=== PATIENT | female | born 1960 | race Caucasian/White ===

== ENCOUNTER → 2021-08-03 12:23 | Outpatient (BNVA) | payer OTHER, SELFPAY | PROVIDERS: PCP Internal Medicine; Visit Provider Physician Assistant ==

== ENCOUNTER → 2021-08-04 08:02 | Outpatient (BNVA) | payer OTHER, SELFPAY | PROVIDERS: PCP Internal Medicine; Visit Provider Surgery ==

== ENCOUNTER 2021-08-14 12:30 | Outpatient (REF) | payer OTHER, SELFPAY ==
--- NOTE | ~2021-08-14 | XR_ITS ---
EXAMINATION: XR CHEST CLINICAL INFORMATION: Obesity, unspecified. COMPARISON: None TECHNIQUE: 2 views of the chest were obtained. FINDINGS: No significant abnormality is noted involving the heart, lungs, mediastinum, bony thorax or soft tissues. XR/XR chest 2V IMPRESSION: No acute cardiopulmonary process.
--- NOTE | 2021-08-14 12:45 | ECG_ITS ---
Test Reason : obesity Blood Pressure : / mmHG Vent. Rate : 088 BPM Atrial Rate : 088 BPM P-R Int : 128 ms QRS Dur : 072 ms QT Int : 394 ms P-R-T Axes : 070 033 033 degrees QTc Int : 476 ms Normal sinus rhythm Normal ECG No previous ECGs available Referred By: Robin Gupta Electronically Signed By:DANITZA HELM MD
[2021-08-14 13:04] LABS: MANUAL DIFF FLAG NO
[2021-08-14 13:30] LABS: Basophils Percent Auto 0.5 % (0-2); Eosinophils Absolute Auto 0.3 X10*3/uL (0.0-0.4); Eosinophils Percent Auto 4.6 % (0-4); Hematocrit 42.9 % (37-47); Hemoglobin 14.2 g/dl (12.0-16.0); Imm Gran Abs Auto 0.01 X10*3/uL (0.00-0.03); Imm Gran Pct Auto 0.2 % (0.0-0.4); Lymphocytes Absolute Auto 2.1 X10*3/uL (1.2-4.9); Lymphocytes Percent Auto 33.1 % (20-40); Mean Corpuscular HGB Conc 33.1 g/dl (31.0-35.0); Mean Corpuscular Hemoglobin 30.3 pg (27.0-33.0); Mean Corpuscular Volume 91.5 fL (80-98); Mean Platelet Volume 11.4 fL (9.4-12.3); Monocytes Absolute Auto 0.5 X10*3/uL (0.1-1.2); Monocytes Percent Auto 7.3 % (2-11); Neutrophils Absolute Auto 3.4 X10*3/uL (2.0-8.3); Neutrophils Percent Auto 54.3 % (45-73); Platelet Count 191 X10*3/uL (160-400); Red Blood Count 4.69 X10*6/uL (4.20-5.50); Red Cell Distribution Width 13.1 % (11.0-16.0); White Blood Count 6.3 X10*3/uL (4.8-10.8)
[2021-08-14 13:51] LABS: Alanine Aminotransferase 22 U/L (0-31); Albumin Level 4.1 g/dL (3.5-5.0); Alkaline Phosphatase 129 U/L (39-117); Anion Gap 12 (12-20); Aspartate Amino Transferase 23 U/L (5-31); Bilirubin Total 0.6 mg/dL (0.0-1.0); Blood Urea Nitrogen 10 mg/dL (9-16); C Reactive Protein 1.21 mg/dL (< or = 0.50); Calcium 9.3 mg/dL (8.4-10.2); Carbon Dioxide 24 mmol/L (22-29); Chloride 109 mmol/L (96-108); Cholesterol 202 mg/dL; Estimated Glomerular Filt Rate > 60; Glucose Random 120 mg/dL (60-115); HDL Cholesterol 38 mg/dL; Iron 98 mcg/dL (30-160); LDL Cholesterol Calculated 155 mg/dl; Percent Iron Saturation 34 % (15-50); Potassium 4.2 mmol/L (3.3-5.1); Sodium 141 mmol/L (135-145); Total Iron Binding Capacity 291 mcg/dL (228-428); Total Protein 7.2 g/dL (6.5-8.0); Triglycerides 47 mg/dL; Unsaturated Iron Binding 193 ug/dL
[2021-08-14 14:02] LABS: Estimated Average Glucose 120 mg/dL; Hemoglobin A1c % 5.8 %
[2021-08-14 14:16] LABS: Insulin 18 uU/mL (2-29)
[2021-08-14 14:19] LABS: Ferritin 421 ng/mL (10-250); TSH reflex Free T4 1.96 uIU/mL (0.32-4.0); Vitamin D 25-OH Total 32.3 ng/mL (>30)
[2021-08-14 14:27] LABS: Folate 17.3 ng/mL (> or = 4.0); Vitamin B12 672 pg/mL (200-900)
[2021-08-15 16:05] LABS: Calcium (PTHI) 9.5 mg/dL (8.6-10.4); PTHI 84 pg/mL (14-64)
[2021-08-17 17:27] LABS: Zinc 72 mcg/dL (60-130)
[2021-08-18 21:17] LABS: Vitamin A 30 mcg/dL (38-98)
[2021-08-19 11:02] LABS: Vitamin B1 12 nmol/L (8-30)
== END 2021-08-14 12:31 | disposition home or self-care (01) ==
LOC: HO.LAB 12:30
PROVIDERS: PCP Internal Medicine; Visit Provider Surgery
DX: E66.9 Obesity, unspecified (principal); Z68.36 Body mass index [BMI] 36.0-36.9, adult; I10 Essential (primary) hypertension; J45.909 Unspecified asthma, uncomplicated
CPT/HCPCS: 36415; 71046; 80053; 80061; 82306; 82607; 82728; 82746; 83036; 83525; 83540; 83970; 84425; 84443; 84590; 84630; 85025; 86140; 93005

== ENCOUNTER → 2021-09-01 08:08 | Outpatient (BNVA) | payer OTHER, SELFPAY | PROVIDERS: PCP Internal Medicine; Visit Provider Surgery ==

== ENCOUNTER → 2021-09-08 08:06 | Outpatient (BNVA) | payer OTHER, SELFPAY | PROVIDERS: PCP Internal Medicine; Visit Provider Dietitian, Registered ==

== ENCOUNTER → 2021-09-29 08:15 | Outpatient (BNVA) | payer MEDICARE, MEDICAID, SELFPAY | PROVIDERS: PCP Internal Medicine; Visit Provider Dietitian, Registered | DX: E66.9 Obesity, unspecified (principal) | CPT/HCPCS: 97802 ==

== ENCOUNTER → 2021-10-18 08:12 | Outpatient (BNVA) | payer MEDICARE, MEDICAID, SELFPAY | PROVIDERS: PCP Internal Medicine; Referring Provider Surgery; Visit Provider Dietitian, Registered | DX: E66.9 Obesity, unspecified (principal); Z68.38 Body mass index [BMI] 38.0-38.9, adult | CPT/HCPCS: 97803 ==

== ENCOUNTER 2021-11-20 09:52 | Outpatient (REF) | payer MEDICARE, MEDICAID, SELFPAY ==
--- NOTE | ~2021-11-20 | FL_ITS ---
EXAMINATION: XR FLUOROSCOPY UPPER GI WITH AIR CLINICAL INFORMATION: Obesity. COMPARISON: None. TECHNIQUE: Routine upper GI air-contrast study was performed in upright and lying position. FINDINGS: Following oral administration of thick barium and effervescent granules, there is normal propagation of bolus from the oral cavity through the pharynx and esophagus and into the stomach. On placing patient supine and prone lying, the course, caliber and peristalsis of the stomach are normal. There is mild increased loculation along the body of the stomach, suspicious for increased acidity. The mucosal pattern of the stomach, duodenal bulb and the sweep is normal. No gastroesophageal reflux or hiatal hernia seen. FLUOROSCOPY TIME: 2.6 minutes DOSE AREA PRODUCT: 27.966 uGy-m2 (microgray-meter squared) FL/FL upper GI w air IMPRESSION: Increased flocculation of barium in the body of the stomach, suspicious for hyperacidity. The rest of the upper GI exam is unremarkable.
--- NOTE | ~2021-11-20 | US_ITS ---
EXAMINATION: US COMPLETE ABDOMEN WITH LIVER ELASTOGRAPHY CLINICAL INFORMATION: Obesity COMPARISON: None. TECHNIQUE: Real-time imaging of the abdominal viscera. Noninvasive ultrasound liver fibrosis assessment is performed using Aliya ElastPQ point quantification shear wave elastography (2D-SWE) with a C5-2 MHz transducer. Multiple elastography samples are obtained. FINDINGS: PANCREAS: Normal. ABDOMINAL AORTA: The proximal, middle, and distal aortic segments are normal in caliber. INFERIOR VENA CAVA: Visualized portions are normal. LIVER: Liver echotexture is increased. The liver is enlarged. The liver is normal in contour. No focal lesion or intrahepatic biliary duct dilatation. The right lobe measures 21 cm in length. The left lobe measures 18 cm in length. Portal flow is not assessed. Shear wave liver elastography median stiffness is 1.6 m/s (reference: normal median stiffness is 1.3 m/s or less). IQR/median stiffness to assess sampling precision is 0.2 (reference: good quality data set is IQR/median stiffness of 0.15 or less). GALLBLADDER: Normal. The gallbladder is physiologically distended without evidence of stones, sludge, polyps, wall thickening or pericholecystic fluid. COMMON BILE DUCT: Normal in caliber measuring 0.4 cm in diameter. RIGHT KIDNEY: There are 2 stones measuring 8 x 4 x 7 mm and 9 mm in the midpole. No hydronephrosis. No focal parenchymal lesions. The kidney measures 10 cm in maximum dimension. LEFT KIDNEY: There are 3 stones measuring 6 x 4 x 4 mm, 5 x 4 x 7 mm and 2 x 4 mm in the midpole. There is a 1 cm cyst in the midpole. No hydronephrosis. No renal mass. The kidney measures 11 cm in maximum dimension. SPLEEN: Normal. The spleen measures 10.3 cm in maximum dimension. FREE FLUID: None. US/US abdomen comp w elastography IMPRESSION: 1. Impression: Enlarged echogenic liver probably representing fatty infiltration. Bilateral renal stones. Small left renal cyst. 2. Liver elastography: Slightly limited due to sampling error. In the absence of other known clinical signs, rules out compensated advanced chronic liver disease. REFERENCE: Society of Radiologists in Ultrasound Liver Stiffness Thresholds (2020): LIVER STIFFNESS THRESHOLDS: *Liver Stiffness equal or less than 1.3 m/s: High probability of being normal. *Liver Stiffness less than 1.7 m/s: In the absence of other known clinical signs, rules out compensated advanced chronic liver disease. *Liver Stiffness 1.7-2.1 m/s: Suggestive of compensated advanced chronic liver disease but need further test for confirmation. *Liver Stiffness over 2.1 m/s: Rules in compensated advanced chronic liver disease. *Liver Stiffness over 2.4 m/s: Suggestive of clinically significant portal hypertension. QUALITY OF DATA SET: *IQR/Median value equal or less than 0.15 implies a quality data set. *IQR/Median value over 0.15 implies a poor quality data set. SIGNIFICANT CHANGE FROM PRIOR EXAM: Significant change if liver stiffness measurement is 10% or greater from prior exam. OTHER CONSIDERATIONS: The stage of liver fibrosis may be overestimated in the setting of acute hepatitis, liver inflammation, elevated liver function tests, hepatic vascular congestion, obstructive cholestasis, non-fasting state, and infiltrative diseases such as amyloidosis and lymphoma. In some patients with NAFLD, the liver stiffness thresholds for compensated advanced chronic liver disease may be lower. In causes other than viral hepatitis and NAFLD, liver stiffness thresholds are not well established.
--- NOTE | 2021-11-20 17:01 | PFT_ITS ---
Forced vital capacity 61. FEV1 55%. FEF 25-75 is 34%. MVV 52%. These findings are consistent with moderate degree of obstructive airway disorder. Post bronchodilator therapy, there is small, but significant improvement in FEV1, [id number]. Total lung capacity 89%. Residual volume 114%. Diffusion capacity 79%, normal. CONCLUSION: Moderate degree of obstructive airway disorder with positive response to bronchodilator therapy. These findings are consistent with bronchial asthma. Clinical correlation is recommended. MD SHIRLEY Pantoja/MODL / [id number]
== END 2021-11-20 09:53 | disposition home or self-care (01) ==
LOC: HO.RESP 09:52
PROVIDERS: Visit Provider Surgery
DX: J45.909 Unspecified asthma, uncomplicated (principal); I10 Essential (primary) hypertension; E66.9 Obesity, unspecified; Z68.36 Body mass index [BMI] 36.0-36.9, adult
CPT/HCPCS: 74246; 76705; 76981; 94060; 94727; 94729

== ENCOUNTER → 2021-12-08 08:18 | Outpatient (BNVA) | payer MEDICARE, MEDICAID, SELFPAY | PROVIDERS: PCP Internal Medicine; Referring Provider Surgery; Visit Provider Dietitian, Registered | DX: Z13.89 Encounter for screening for other disorder (principal) ==

== ENCOUNTER → 2021-12-26 11:52 | Outpatient (BNVA) | payer MEDICARE, MEDICAID, SELFPAY | PROVIDERS: PCP Nurse Practitioner Pediatrics; Visit Provider Urology | DX: N20.0 Calculus of kidney (principal) | CPT/HCPCS: Q3014 ==

== ENCOUNTER → 2021-12-28 11:36 | Outpatient (BNVA) | payer MEDICARE, MEDICAID, SELFPAY | PROVIDERS: PCP Nurse Practitioner Pediatrics; Referring Provider Physician Assistant; Visit Provider Dietitian, Registered | DX: E66.9 Obesity, unspecified (principal); Z68.36 Body mass index [BMI] 36.0-36.9, adult | CPT/HCPCS: 97803 ==

== ENCOUNTER → 2022-01-12 08:19 | Outpatient (BNVA) | payer MEDICARE, MEDICAID, SELFPAY | PROVIDERS: PCP Nurse Practitioner Pediatrics; Referring Provider Surgery; Visit Provider Dietitian, Registered | DX: Z13.89 Encounter for screening for other disorder (principal) ==

== ENCOUNTER 2022-01-31 06:13 | Day surgery (SDC) | payer MEDICARE, MEDICAID, SELFPAY ==
--- NOTE | 2022-01-30 11:49 | HO.ANESPROP2 ---
Documented by User: Rajani García NP 01/30/22 11:50 HPI - Anesthesia Eval Consult details Narrative: 61yo F for Left ESWL PMFSH Active Problems Active Problems: All Active Problems (Updated 08/21/21 @ 20:30 by Robin Gupta MD) Vitamin A deficiency (Acute) Moderate episode of recurrent major depressive disorder (Acute) Binge eating disorder (Acute) Fibromyalgia (Acute) DJD (degenerative joint disease) (Acute) Asthma (Acute) Nephrolithiasis (Acute) Depression (Acute) Hypertension (Acute) GERD (gastroesophageal reflux disease) (Acute) BMI 36.0-36.9,adult (Acute) Obesity (Acute) Past Medical History Medical History Asthma Depression DJD (degenerative joint disease) Fibromyalgia GERD (gastroesophageal reflux disease) Hypertension Nephrolithiasis Obesity Family History Family History Mother Osteoporosis Father Dementia Parkinsons Sister Migraines Brother No problems noted. Brother No problems noted. Son No problems noted. Son No problems noted. Son No problems noted. Surgical History Surgical History History of kidney surgery Hx of section Hx of colonoscopy Hx of dilation and curettage Social History Social History Alcohol intake: current Alcohol intake frequency: holidays/special occasions only Patient Tobacco Use Status: Former Tobacco user Meds Allergies Allergy/AdvReac Type Severity Reaction Status Date / Time naproxen [From NAPROSYN] Allergy Unknown STOMACH Verified 01/25/22 15:14 UPSET Seasonal Allergies Allergy Watery Eye Verified 01/31/22 08:33 Home Medications Medication Instructions Recorded Confirmed Last Taken Type amitriptyline 75 mg tablet 75 mg PO BEDTIME 08/04/21 01/25/22 Unknown History clonazepam 1 mg tablet 1 mg PO BID PRN 08/04/21 01/25/22 Unknown History escitalopram oxalate 20 mg tablet 20 mg PO QAM 08/04/21 01/25/22 Unknown History fluticasone propionate 230 2 puff INHALATION BID 08/04/21 01/25/22 Unknown History mcg-salmeterol 21 mcg/actuation HFA inhaler (Advair HFA) fluticasone propionate 50 1 spray INTRANASAL BID 08/04/21 01/25/22 Unknown History mcg/actuation nasal spray,suspension hydrochlorothiazide 12.5 mg tablet 12.5 mg PO DAILY 08/04/21 01/25/22 Unknown History hydroxyzine HCl 25 mg tablet 25 mg PO TID PRN 08/04/21 01/25/22 Unknown History inhalational spacing device #1 ea 08/04/21 08/04/21 [facility] loratadine 10 mg tablet 10 mg PO DAILY 08/04/21 01/25/22 Unknown History montelukast 10 mg tablet 10 mg PO DAILY 08/04/21 01/25/22 Unknown History estradiol VAGINAL 12/26/21 Unknown History meloxicam 15 mg tablet mg PO 12/26/21 Unknown History Exam Exam Date and Time: January 30, 2022 1149 Pertinent Lab Results Pertinent Lab Results: Laboratory Tests 08/14/21 08/14/21 13:00 13:00 WBC 6.3 Hgb 14.2 Hct 42.9 Plt Count 191 Sodium 141 Potassium 4.2 Chloride 109 H Carbon Dioxide 24 BUN 10 Creatinine 0.83 Narrative Narrative: EKG 07/2021 Vent. Rate : 088 BPM ? ? Atrial Rate : 088 BPM ?? P-R Int : 128 ms? QRS Dur : 072 ms ? ? QT Int : 394 ms ? ? ? P-R-T Axes : 070 033 033 degrees ?? QTc Int : 476 ms ? Normal sinus rhythm Normal ECG No previous ECGs available Assessment and Plan Assessment Anesthesia Assessment: Chart Reviewed Documented by User: Jm Calderon MD 01/31/22 15:04 PMFSH Past Medical History Medical History Asthma Depression DJD (degenerative joint disease) Fibromyalgia GERD (gastroesophageal reflux disease) Hypertension Nephrolithiasis Obesity Family History Family History Mother Osteoporosis Father Dementia Parkinsons Sister Migraines Brother No problems noted. Brother No problems noted. Son No problems noted. Son No problems noted. Son No problems noted. Family history of problems with anesthesia: No Surgical History Surgical History History of kidney surgery Hx of section Hx of colonoscopy Hx of dilation and curettage History of Problems with Anesthesia: No Social History Social History Alcohol intake: current Alcohol intake frequency: holidays/special occasions only Patient Tobacco Use Status: Former Tobacco user Meds Allergies Allergy/AdvReac Type Severity Reaction Status Date / Time naproxen [From NAPROSYN] Allergy Unknown STOMACH Verified 01/25/22 15:14 UPSET Seasonal Allergies Allergy Watery Eye Verified 01/31/22 08:33 Home Medications Medication Instructions Recorded Confirmed Last Taken Type amitriptyline 75 mg tablet 75 mg PO BEDTIME 08/04/21 01/25/22 Unknown History clonazepam 1 mg tablet 1 mg PO BID PRN 08/04/21 01/25/22 Unknown History escitalopram oxalate 20 mg tablet 20 mg PO QAM 08/04/21 01/25/22 Unknown History fluticasone propionate 230 2 puff INHALATION BID 08/04/21 01/25/22 Unknown History mcg-salmeterol 21 mcg/actuation HFA inhaler (Advair HFA) fluticasone propionate 50 1 spray INTRANASAL BID 08/04/21 01/25/22 Unknown History mcg/actuation nasal spray,suspension hydrochlorothiazide 12.5 mg tablet 12.5 mg PO DAILY 08/04/21 01/25/22 Unknown History hydroxyzine HCl 25 mg tablet 25 mg PO TID PRN 08/04/21 01/25/22 Unknown History inhalational spacing device #1 ea 08/04/21 08/04/21 Unknown History ([facility]) loratadine 10 mg tablet 10 mg PO DAILY 08/04/21 01/25/22 Unknown History montelukast 10 mg tablet 10 mg PO DAILY 08/04/21 01/25/22 Unknown History estradiol VAGINAL 12/26/21 Unknown History meloxicam 15 mg tablet mg PO 12/26/21 Unknown History Exam Airway Mallampati Class: III TM Dist: >3cm Neck ROM: Full Loose/Missing/Broken Teeth: Yes Heart: rrr Lungs: b/l breath sounds Assessment and Plan Assessment Anesthesia Assessment: Anesthesia Plan Discussed Final Anesthetic Review Family History of Problems with Anesthesia: No History of Problems with Anesthesia: No NPO: Yes ASA Class: II Final Preanesthetic Review: Meds/Allgs Chart Reviewed, Consent Obtained/Reviewed and Anes Risks/Benef Reviewed Patient Risk: Intermediate Procedure Risk: Intermediate Anesthetic Plan Anesthetic Plan: GA Disposition: Standard PACU
[2022-01-31] VITALS (7 sets, daily range): BP systolic 116–149; BP diastolic 76–93; PULSE 77–89; RESP 16–18; TEMP 36.1–36.6; O2SAT 94–99; BMI 37.8
--- NOTE | ~2022-01-31 | XR_ITS ---
EXAMINATION: XR ABDOMEN KUB CLINICAL INDICATION: Nephrolithiasis COMPARISON: None TECHNIQUE: AP view of the abdomen. FINDINGS: No calcifications projecting over the kidneys are seen. There are bilateral pelvic calcifications probably representing calcified phleboliths. Bowel gas pattern and bony structures are unremarkable. XR/XR KUB IMPRESSION: No renal stone seen by KUB.
[2022-01-31] MEDS: Acetaminophen 325 MG TABLET 650 MG PO (06:47)
[2022-01-31] MEDS: Lactated Ringers 1,000 ML 100 ML IVCONT (06:47)
--- NOTE | 2022-01-31 08:00 | MHC.SHP ---
Pre-Procedural Eval Section A Date of Service: 01/31/22 The patient is an INPATIENT: No Changes since office visit: No Cold of Flu in the past 2 weeks, No New Medical Problems, No Changes in Medication and No Patient answered all questions The History & Physical has been completed within 30 days and I have reviewed it.: No Section B Chief Complaint: calculus of kidney Details of Present Illness: bilateral stones - treatment Left ESWL Relevant Family History (Specify if Yes): No Relevant Social History: None Present Medications: see Short Stay Collaborative assessment Medical History: Significant History History of Previous Operations: Relevant previous surgery/procedure and date(s) Allergies: Allergies Allergy/AdvReac Type Severity Reaction Status Date / Time naproxen [From NAPROSYN] Allergy Unknown STOMACH Verified 01/25/22 15:14 UPSET Seasonale Allergy Unknown Anaphylaxis Uncoded 01/25/22 15:14 Review of Systems Sugical H&P ROS: Negative: Constitution, Cardiovascular, Respiratory, Neurological, Psychiatric, Hem-Onc, Allergic/Immunologic, Gastrointestinal, Genitourinary, Musculoskeletal, Integumentary, Endocrine and Eyes/Ears/Nose/Throat Exam Surgical H&P Exam: Normal: HEENT, Normal: Heart, Normal: Lungs, Normal: Extremities, Normal: Abdomen, Normal: Skin and Normal: Neurological Plan Diagnosis/Plan: Unchanged (left ESWL) I have reviewed the history and physical and performed a pertinent physical examination on my patient. No changes have occurred unless specified.
--- NOTE | 2022-01-31 08:46 | W.PM.OPN ---
Operative Note Operative Note Date of Service: 01/31/22 Narrative: PreOperative Diagnosis: Left Renal stones Post Operative Diagnosis: Left Renal stones Procedure: Left ESWL Surgeon: Dr Maco Ponce Anesthesia: mac/sedation Indications for procedure: The patient understands ESWL may be a staged procedure and subsequent intervention may be required based on imaging after ESWL. They also understand there is a risk of bleeding to the kidney, infection, damage to adjacent organs, and stone migration following the procedure. - Imaging x-ray with 6 mm left mid pole stone Procedure: After informed consent was verified the patient was brought to the operating room and placed in a supine position. Anesthesia was performed per protocol. Safety pause time-out was performed. Imaging was displayed in the room and laterality confirmed. ESWL was performed. The 1st 500 shocks were performed at 60 hertz. These were performed with increasing power. Once maximum power was reached the rate was increased to 180 hertz. A total of 2500 shocks were given. Targetted imaging with ultrasound/fluoroscopy showed stone smudging suggestive of disintegration. The patient tolerated the procedure well and was transferred to the recovery area upon completion. Post procedure imaging will be organized. There was no evidence for flank discoloration.
[2022-01-31] MEDS: Phenazopyridine HCL 100 MG TABLET PO (09:26)
== END 2022-01-31 10:20 | disposition home or self-care (01) ==
PROVIDERS: PCP Internal Medicine; Visit Provider Urology
PROC: (CPT 50590; principal; 2022-01-31 08:10)
DX: N20.0 Calculus of kidney (principal); Z87.442 Personal history of urinary calculi; I10 Essential (primary) hypertension; M79.7 Fibromyalgia; J45.909 Unspecified asthma, uncomplicated; Z79.51 Long term (current) use of inhaled steroids; Z79.899 Other long term (current) drug therapy; Z88.8 Allergy status to other drugs, medicaments and biological substances; Z87.891 Personal history of nicotine dependence; N13.2 Hydronephrosis with renal and ureteral calculous obstruction
CPT/HCPCS: 50590; 74018; J1100; J2250; J2405; J3010

== ENCOUNTER 2022-02-22 14:16 | Outpatient (REF) | payer MEDICARE, MEDICAID, SELFPAY ==
--- NOTE | ~2022-02-22 | US_ITS ---
EXAMINATION: US RETROPERITONEAL LIMITED (RENAL ONLY) CLINICAL INFORMATION: Calculus of kidney. COMPARISON: XR abdomen KUB 01/31/2022. US abdomen complete with liver elastography 11/20/2021. TECHNIQUE: Real-time imaging of the kidneys. FINDINGS: RIGHT KIDNEY: 11.0 x 5.2 x 6.2 cm (SAG x AP x TRV). The kidney is normal in size, contour, and echogenicity. Renal cortical thickness is normal. No hydronephrosis. Simple cyst at the midpole measures 1.4 cm. No follow-up imaging recommended. There are multiple calculi present with the largest at the mid to lower pole measuring 0.7 cm. This is similar to prior. LEFT KIDNEY: 12.0 x 5.3 x 5.3 cm (SAG x AP x TRV). The kidney is normal in size, contour, and echogenicity. Renal cortical thickness is normal. No hydronephrosis. There is a lower pole 1.5 cm simple cyst. No follow-up imaging recommended. There are at least 3 midpole calculi. The largest measures 1 cm. The others measure 0.6 cm. Likely no significant change from prior. US/US renal BI IMPRESSION: Numerous nonobstructing bilateral renal calculi..
== END 2022-02-22 14:17 | disposition home or self-care (01) ==
LOC: HO.US 14:16
PROVIDERS: PCP Internal Medicine; Visit Provider Urology
DX: N20.0 Calculus of kidney (principal)
CPT/HCPCS: 76775

== ENCOUNTER → 2022-02-23 11:36 | Outpatient (BNVA) | payer MEDICARE, MEDICAID, SELFPAY | PROVIDERS: PCP Internal Medicine; Visit Provider Urology | DX: N39.0 Urinary tract infection, site not specified (principal); N20.0 Calculus of kidney | CPT/HCPCS: Q3014 ==

== ENCOUNTER 2022-03-14 08:37 | Day surgery (SDC) | payer MEDICARE, MEDICAID, SELFPAY ==
[2022-03-08 18:25] VITALS: BMI 37.2
--- NOTE | 2022-03-13 11:51 | P.CONAN_ITS ---
Documented by User: Rajani García NP 03/13/22 11:51 HPI - Anesthesia Eval Consult details Narrative: 61yo F for Right ESWL Last ESWL 01/2022 with GA-LMA 4 PMFSH Active Problems Active Problems: All Active Problems (Updated 03/08/22 @ 17:14 by Vinita Trent, RN) BMI 36.0-36.9,adult (Acute) Binge eating disorder (Acute) Moderate episode of recurrent major depressive disorder (Acute) Vitamin A deficiency (Acute) Chronic UTI (urinary tract infection) (Acute) Fibromyalgia (Acute) DJD (degenerative joint disease) (Acute) Asthma (Acute) Nephrolithiasis (Acute) Depression (Acute) Hypertension (Acute) GERD (gastroesophageal reflux disease) (Acute) Obesity (Acute) Past Medical History Medical History (Updated 03/08/22 @ 17:14 by Vinita Trent, GERALDINE) Asthma Back pain Depression DJD (degenerative joint disease) Fatty liver Fibromyalgia GERD (gastroesophageal reflux disease) Hypertension Migraine Nephrolithiasis Obesity Family History Family History Mother Osteoporosis Father Dementia Parkinsons Sister Migraines Brother No problems noted. Brother No problems noted. Son No problems noted. Son No problems noted. Son No problems noted. Family history of problems with anesthesia: No Surgical History Surgical History (Updated 03/09/22 @ 12:45 by Mariama Santamaria RN) History of endometrial ablation History of kidney surgery History of lithotripsy Hx of section Hx of colonoscopy Hx of dilation and curettage History of Problems with Anesthesia: No Social History Social History Alcohol intake: current Alcohol intake frequency: holidays/special occasions only Patient Tobacco Use Status: Former Tobacco user Use of substances other than those prescribed or required for medical reasons: No Are you DNR?: No Advance Directives: No Advance Directives Information Provided: Yes Advance Directives on File: No Recently lost weight without trying: No Nutrition Risks: No Nutritional Risk Patient : No Meds Allergies Allergy/AdvReac Type Severity Reaction Status Date / Time naproxen [From NAPROSYN] Allergy Unknown STOMACH Verified 02/23/22 11:37 UPSET Seasonal Allergies Allergy Watery Eye Verified 02/23/22 11:37 Home Medications Medication Instructions Recorded Confirmed Last Taken Type amitriptyline 75 mg tablet 75 mg PO BEDTIME 08/04/21 03/08/22 Unknown History clonazepam 1 mg tablet 1 mg PO BID PRN 08/04/21 03/08/22 Unknown History escitalopram oxalate 20 mg tablet 20 mg PO QAM 08/04/21 03/08/22 Unknown History fluticasone propionate 230 2 puff INHALATION BID 08/04/21 03/08/22 Unknown History mcg-salmeterol 21 mcg/actuation HFA inhaler (Advair HFA) fluticasone propionate 50 1 spray INTRANASAL BID 08/04/21 03/08/22 Unknown History mcg/actuation nasal spray,suspension hydrochlorothiazide 12.5 mg tablet 12.5 mg PO DAILY 08/04/21 03/08/22 Unknown History hydroxyzine HCl 25 mg tablet 25 mg PO TID PRN 08/04/21 03/08/22 Unknown History inhalational spacing device #1 ea 08/04/21 08/04/21 Unknown History ([facility]) loratadine 10 mg tablet 10 mg PO DAILY 08/04/21 03/08/22 Unknown History montelukast 10 mg tablet 10 mg PO DAILY 08/04/21 03/08/22 Unknown History estradiol 1 appl VAGINAL DAILY 12/26/21 03/08/22 Unknown History meloxicam 15 mg tablet 15 mg PO DAILY 12/26/21 03/08/22 Unknown History Exam Exam Date and Time: March 13, 2022 1151 Height,Weight and Vital Signs: Height 5 ft 1 in Weight 89.358 kg Pertinent Lab Results Pertinent Lab Results: Laboratory Tests ? 08/14/21 08/14/21 ? 13:00 13:00 WBC ?6.3 ? Hgb ?14.2 ? Hct ?42.9 ? Plt Count ?191 ? Sodium ? ?141 Potassium ? ?4.2 Chloride ? ?109 H Carbon Dioxide ? ?24 BUN ? ?10 Creatinine ? ?0.83 Narrative Narrative: EKG 07/2021 Vent. Rate : 088 BPM ? ? Atrial Rate : 088 BPM ?? P-R Int : 128 ms? QRS Dur : 072 ms ? ? QT Int : 394 ms ? ? ? P-R-T Axes : 070 033 033 degrees ?? QTc Int : 476 ms ? Normal sinus rhythm Normal ECG No previous ECGs available Assessment and Plan Assessment Anesthesia Assessment: Chart Reviewed Final Anesthetic Review Family History of Problems with Anesthesia: No History of Problems with Anesthesia: No Documented by User: Byron Gaspar MD 03/14/22 10:51 [facility] Past Medical History Medical History (Updated 03/08/22 @ 17:14 by Vinita Trent, GERALDINE) Asthma Back pain Depression DJD (degenerative joint disease) Fatty liver Fibromyalgia GERD (gastroesophageal reflux disease) Hypertension Migraine Nephrolithiasis Obesity Family History Family History Mother Osteoporosis Father Dementia Parkinsons Sister Migraines Brother No problems noted. Brother No problems noted. Son No problems noted. Son No problems noted. Son No problems noted. Surgical History Surgical History (Updated 03/09/22 @ 12:45 by Mariama Santamaria, GERALDINE) History of endometrial ablation History of kidney surgery History of lithotripsy Hx of section Hx of colonoscopy Hx of dilation and curettage Social History Social History Alcohol intake: current Alcohol intake frequency: holidays/special occasions only Patient Tobacco Use Status: Former Tobacco user Use of substances other than those prescribed or required for medical reasons: No Are you DNR?: No Advance Directives: No Advance Directives Information Provided: Yes Advance Directives on File: No Recently lost weight without trying: No Nutrition Risks: No Nutritional Risk Patient : No Meds Allergies Allergy/AdvReac Type Severity Reaction Status Date / Time naproxen [From NAPROSYN] Allergy Unknown STOMACH Verified 02/23/22 11:37 UPSET Seasonal Allergies Allergy Watery Eye Verified 02/23/22 11:37 Home Medications Medication Instructions Recorded Confirmed Last Taken Type amitriptyline 75 mg tablet 75 mg PO BEDTIME 08/04/21 03/08/22 Unknown History clonazepam 1 mg tablet 1 mg PO BID PRN 08/04/21 03/08/22 Unknown History escitalopram oxalate 20 mg tablet 20 mg PO QAM 08/04/21 03/08/22 Unknown History fluticasone propionate 230 2 puff INHALATION BID 08/04/21 03/08/22 Unknown History mcg-salmeterol 21 mcg/actuation HFA inhaler (Advair HFA) fluticasone propionate 50 1 spray INTRANASAL BID 08/04/21 03/08/22 Unknown History mcg/actuation nasal spray,suspension hydrochlorothiazide 12.5 mg tablet 12.5 mg PO DAILY 08/04/21 03/08/22 Unknown History hydroxyzine HCl 25 mg tablet 25 mg PO TID PRN 08/04/21 03/08/22 Unknown History inhalational spacing device #1 ea 08/04/21 08/04/21 Unknown History ([facility]) loratadine 10 mg tablet 10 mg PO DAILY 08/04/21 03/08/22 Unknown History montelukast 10 mg tablet 10 mg PO DAILY 08/04/21 03/08/22 Unknown History estradiol 1 appl VAGINAL DAILY 12/26/21 03/08/22 Unknown History meloxicam 15 mg tablet 15 mg PO DAILY 12/26/21 03/08/22 Unknown History Exam Airway Mallampati Class: II TM Dist: >3cm Neck ROM: Full Loose/Missing/Broken Teeth: No Heart: [id number] Lungs: cta b/l Assessment and Plan Assessment Anesthesia Assessment: Anesthesia Plan Discussed Final Anesthetic Review NPO: Yes ASA Class: III Final Preanesthetic Review: No Changes in Pt Med Stat, Meds/Allgs Chart Reviewed, Consent Obtained/Reviewed and Anes Risks/Benef Reviewed Patient Risk: Intermediate Procedure Risk: Intermediate Assessment/Block/Sedation in SS: Assess/Block/Sedation-SS Anesthetic Plan Anesthetic Plan: GA, MAC: and Agree w/ Assess. and Plan Disposition: Standard PACU
[2022-03-14] VITALS (9 sets, daily range): BP systolic 134–169; BP diastolic 80–99; PULSE 67–81; RESP 16–20; TEMP 36.2–36.7; O2SAT 95–98
--- NOTE | ~2022-03-14 | XR_ITS ---
EXAMINATION: XR ABDOMEN [facility] CLINICAL INDICATION: Nephrolithiasis. COMPARISON: [facility] 01/31/2022. TECHNIQUE: AP view of the abdomen. FINDINGS: There is scattered stool seen in the colon. There are 2 radiopaque tubular foreign body seen in the right abdomen. No radiopaque calculi. There are phleboliths in left pelvis. Mild degenerative disc changes XR/XR [facility] IMPRESSION: 2 tubular foreign body seen in the right abdomen and the upper pelvis likely secondary to oral ingestion. There are new compared to last exam 01/31/2022. Correlate clinically. No radiopaque renal calculi seen.
[2022-03-14] MEDS: Acetaminophen 325 MG TABLET 650 MG PO (09:42)
[2022-03-14] MEDS: Lactated Ringers 1,000 ML 100 ML IVCONT (09:43)
--- NOTE | 2022-03-14 10:15 | MHC.SHP ---
Pre-Procedural Eval Section A Date of Service: 03/14/22 The patient is an INPATIENT: No Changes since office visit: No Cold of Flu in the past 2 weeks, No New Medical Problems, No Changes in Medication and No Patient answered all questions The History & Physical has been completed within 30 days and I have reviewed it.: Yes Section B Chief Complaint: kidney stone Allergies: Allergies Allergy/AdvReac Type Severity Reaction Status Date / Time naproxen [From NAPROSYN] Allergy Unknown STOMACH Verified 02/23/22 11:37 UPSET Seasonal Allergies Allergy Watery Eye Verified 02/23/22 11:37 Plan Diagnosis/Plan: Unchanged (right renal eswl) I have reviewed the history and physical and performed a pertinent physical examination on my patient. No changes have occurred unless specified.
--- NOTE | 2022-03-14 11:47 | W.PM.OPN ---
Operative Note Operative Note Date of Service: 03/14/22 Narrative: PreOperative Diagnosis: Right Renal stones Post Operative Diagnosis: Right Renal stones Procedure: Right ESWL Surgeon: Dr Maco Ponce Anesthesia: mac/sedation Indications for procedure: The patient understands ESWL may be a staged procedure and subsequent intervention may be required based on imaging after ESWL. They also understand there is a risk of bleeding to the kidney, infection, damage to adjacent organs, and stone migration following the procedure. - Imaging 8 mm right-sided Procedure: After informed consent was verified the patient was brought to the operating room and placed in a supine position. Anesthesia was performed per protocol. Safety pause time-out was performed. Imaging was displayed in the room and laterality confirmed. ESWL was performed. The 1st 500 shocks were performed at 60 hertz. These were performed with increasing power. Once maximum power was reached the rate was increased to 180 hertz. A total of 2500 shocks were given. Targetted imaging with ultrasound/fluoroscopy showed stone smudging suggestive of disintegration. The patient tolerated the procedure well and was transferred to the recovery area upon completion. Post procedure imaging will be organized. There was no evidence for flank discoloration.
--- NOTE | 2022-03-14 12:25 | HO.POSTANES ---
Post Anesthesia Evaluation Post Anesthesia Evaluation Vital Signs: Vital Signs Temp Pulse Resp BP Pulse Ox 03/14/22 12:09 78 18 145/99 H 96 03/14/22 12:04 75 18 135/92 H 95 03/14/22 11:59 97.7 F 78 16 169/90 H 95 03/14/22 09:45 98.1 F 80 16 162/80 H 95 Mental Status: Awake Pain Control: Satisfactory Nausea/Vomiting: None Hydration: Adequate Anesthesia-Related Issues: No Anes. Related Issues
[2022-03-14] MEDS: traMADoL HCL 50 MG TABLET PO (12:48)
[2022-03-14] MEDS: fentaNYL citrate/PF 100 MCG/2 ML VIAL 50 MCG IVPUSH (12:50)
[2022-03-14] MEDS: Phenazopyridine HCL 100 MG TABLET PO (13:28)
== END 2022-03-14 14:39 | disposition home or self-care (01) ==
PROVIDERS: PCP Internal Medicine; Visit Provider Urology
PROC: (CPT 50590; principal; 2022-03-14 10:20)
DX: N20.0 Calculus of kidney (principal); Z87.442 Personal history of urinary calculi; N39.0 Urinary tract infection, site not specified; I10 Essential (primary) hypertension; J45.909 Unspecified asthma, uncomplicated; M79.7 Fibromyalgia; F33.1 Major depressive disorder, recurrent, moderate; K21.9 Gastro-esophageal reflux disease without esophagitis; E66.9 Obesity, unspecified; Z68.36 Body mass index [BMI] 36.0-36.9, adult; Z79.51 Long term (current) use of inhaled steroids; Z79.899 Other long term (current) drug therapy; Z88.8 Allergy status to other drugs, medicaments and biological substances; Z87.891 Personal history of nicotine dependence
CPT/HCPCS: 50590; 74018; J2250; J3010

== ENCOUNTER 2022-04-19 09:46 | Outpatient (REF) | payer MEDICARE, MEDICAID, SELFPAY ==
--- NOTE | ~2022-04-19 | US_ITS ---
EXAMINATION: US RETROPERITONEAL LIMITED (RENAL ONLY) CLINICAL INFORMATION: Calculus of kidney. COMPARISON: [facility] dated 03/14/2022 and 01/31/2022. Bilateral renal ultrasound dated 02/22/2022. TECHNIQUE: Real-time imaging of the kidneys. FINDINGS: RIGHT KIDNEY: 10.7 x 5.1 x 4.2 cm (SAG x AP x TRV). The kidney is normal in size, contour, and echogenicity. Renal cortical thickness is normal. No renal calculi or hydronephrosis. There is anechoic cyst in midpole laterally measuring 1.1 x 0.9 x 1.0 cm. There are no echogenic stones seen. LEFT KIDNEY: 11.9 x 5.4 x 5.3 cm (SAG x AP x TRV). The kidney is normal in size, contour, and echogenicity. Renal cortical thickness is normal. No hydronephrosis. There is anechoic cyst in the lower pole measuring 0.5 x 0.5 x 0.5 cm. There is an echogenic nonobstructive calculi midpole measuring 0.5 x 0.2 cm. There is an anechoic cyst with posterior wall calcification measuring 1.5 x 1.3 x 1.5 cm. In addition, a cluster of echogenic stones in midpole measuring 0.5 x 0.3 cm. US/US renal BI IMPRESSION: Bilateral anechoic simple renal cyst. There is a complex cyst midpole left kidney. Bilateral nonobstructive echogenic renal calculi.
[2022-04-19 11:58] LABS: Calcium 9.7 mg/dL (8.4-10.2); Magnesium 2.3 mg/dL (1.6-2.6); Phosphorus 2.9 mg/dL (2.7-4.5)
[2022-04-20 12:06] LABS: Calcium (PTHI) 9.6 mg/dL (8.6-10.4); PTHI 78 pg/mL (16-77)
== END 2022-04-19 09:47 | disposition home or self-care (01) ==
LOC: HO.US 09:46
PROVIDERS: Visit Provider Urology
DX: N20.0 Calculus of kidney (principal); Z87.442 Personal history of urinary calculi
CPT/HCPCS: 36415; 76775; 82310; 83735; 83970; 84100

== ENCOUNTER → 2022-04-24 08:22 | Outpatient (BNVA) | payer MEDICARE, MEDICAID, SELFPAY | PROVIDERS: PCP Internal Medicine; Visit Provider Urology | DX: Z48.816 Encounter for surgical aftercare following surgery on the genitourinary system (principal); N20.0 Calculus of kidney | CPT/HCPCS: Q3014 ==